=== PATIENT | female | born 1945 | race Asian ===

== ENCOUNTER 2017-05-06 10:55 | Outpatient (CLI) | payer MEDICARE, OTHER ==
--- NOTE | 2017-05-07 00:50 | XRAY Report ---
EXAM: LEFT SHOULDER RADIOGRAPHY EXAM DATE: 05/06/2017 11:16 AM. CLINICAL HISTORY: Left shoulder pain, rotator cuff. COMPARISON: None. TECHNIQUE: 3 views. FINDINGS: Bones: Normal. No fracture or bone lesion. Joints: The glenohumeral and acromioclavicular joints are normally aligned. Moderate acromioclavicula r degenerative changes. Mild glenohumeral degenerative changes. Soft tissues: Calcification in the region of the distal supraspinatus tendon. IMPRESSION: 1. Left shoulder calcific tendinitis. 2. Mild to moderate degenerative changes about the shoulder. [facility] Referring Provider Line: [phone] SITE ID: [id number]
== END 2017-05-06 10:56 | disposition home or self-care (01) ==
LOC: DI 10:55
PROVIDERS: ATTEND Internal Medicine
DX: M75.32 Calcific tendinitis of left shoulder (principal); M19.012 Primary osteoarthritis, left shoulder

== ENCOUNTER 2019-05-23 12:12 | Outpatient (CLI) | payer MEDICARE, OTHER ==
--- NOTE | 2019-05-23 16:26 | DEXA Report ---
Reason: OSTEOPENIA Procedure Date: 05/23/2019 Accession Number: [id number] / [id number] Procedure: DEX - Dexa Spine and/or Hip CPT Code: Final Report FULL RESULT: EXAM: Dexa Spine and/or Hip DATE: 05/23/2019 1:54 PM CLINICAL HISTORY: POST MENOPAUSAL. OSTEOPENIA TECHNIQUE: Dual energy x-ray absorptiometry (DXA) was performed on a [employer] System. Regions measured are the AP Spine, femoral neck, and if needed forearm. COMPARISON: None. In accordance with the International Society for Clinical Densitometry (ISCD) guidelines, data from previous exams may be reanalyzed using current recommendations and techniques. This is done to allow a more accurate basis for comparison with the current study. FINDINGS: The data for the lumbar spine is as follows: BMD (g/cm/cm) T-SCORE Z-SCORE REGION L1 1.017 -0.9 1.1 L2 1.045 -1.3 0.7 L3 1.041 -1.3 0.7 L4 1.057 -1.2 0.8 TOTAL 1.041 -1.2 0.9 NOTE: All evaluable vertebrae are used for classification The data for the hip is as follows: BMD (g/cm/cm) T-SCORE Z-SCORE REGION Neck 0.732 -2.2 -0.2 TOTAL 0.811 -1.6 0.2 NOTE: The femoral neck or total proximal femur, whichever is lowest, is used for classification. IMPRESSION: THE WHO CLASSIFICATION BASED ON THE INTERNATIONAL REFERENCE STANDARD IS OSTEOPENIA. THE FRACTURE RISK IS INCREASED. RECOMMENDATION: Patients with diagnosis of osteoporosis or osteopenia should have regular bone mineral density assessment. For those eligible for Medicare, routine testing is allowed once every 2 years. Testing frequency can be increased for patients who have rapidly progressing disease or for those who are receiving medical therapy to restore bone mass. COMMENT: World Health Organization (WHO) definitions for osteoporosis and osteopenia: NORMAL BMD: T-score at -1.0 or higher, fracture risk is low OSTEOPENIA BMD: T-score between -1.0 and -2.5, fracture risk is increased. OSTEOPOROSIS BMD: T-score at -2.5 or lower, fracture risk is high. National Osteoporosis Foundation recommends: 1. Obtain adequate dietary calcium (at least 1200 mg per day) and vitamin D (400-800 international units per day). 2. Participate, as appropriate, in regular weightbearing and muscle-strengthening exercise. 3. Avoid tobacco use and reduce alcohol and caffeine intake. 4. For more detailed information see the website at www.NOF.org.
== END 2019-05-23 12:13 | disposition home or self-care (01) ==
LOC: DI 12:12
PROVIDERS: ATTEND Internal Medicine
DX: M85.89 Other specified disorders of bone density and structure, multiple sites (principal); I77.810 Thoracic aortic ectasia; N95.8 Other specified menopausal and perimenopausal disorders
CPT/HCPCS: 77080; 93306

== ENCOUNTER 2020-05-26 10:45 | Outpatient (CLI) | payer MEDICARE, OTHER ==
--- NOTE | 2020-05-27 12:59 | Mammography Report ---
BILATERAL DIGITAL SCREENING MAMMOGRAM 3D/2D: 05/26/2020 CLINICAL: Routine screening. Comparison is made to exams dated: 04/24/2015 mammogram and 10/05/2011 mammogram - [facility]. There are scattered fibroglandular elements in both breasts. No significant masses, calcifications, or other findings are seen in either breast. There has been no significant interval change. IMPRESSION: NEGATIVE There is no mammographic evidence of malignancy. A 1 year screening mammogram is recommended. This exam was interpreted at Station ID: [id number]. NOTE: For mammograms, a report in lay terms will be sent to the patient. Approximately 15% of breast malignancies will not be visualized mammographically. In the management of a palpable breast mass, a negative mammogram must not discourage biopsy of a clinically suspicious lesion. Electronically Signed By: Cipriano Serrano M.D. ar/penrad:05/26/2020 12:17:17 ACR BI-RADS Category 1: Negative 3341F PARENCHYMAL PATTERN: (A) - The breast(s) demonstrate(s) scattered fibroglandular densities. BI-RADS CATEGORY: (1) - 1 RECOMMENDATION: (ANNUAL) - Recommend routine annual screening mammography. [id number] 1 year screening LATERALITY: (B)
== END 2020-05-26 10:46 | disposition home or self-care (01) ==
LOC: DI.N 10:45
DX: Z12.31 Encounter for screening mammogram for malignant neoplasm of breast (principal)
CPT/HCPCS: 77067

== ENCOUNTER 2022-09-19 11:56 | Outpatient (CLI) | payer MEDICARE, OTHER ==
[2022-09-19 12:53] LABS: CREATININE 0.9 mg/dL (0.4-1.0)
[2022-09-19] MEDS ORDERED: iohexoL-300 100 ML VIAL ONE (13:04)
--- NOTE | 2022-09-19 14:52 | CT Report ---
PROCEDURE: ANGIO CHEST W/WO INDICATIONS: THORACIC AORTIC ANEURYSM CONTRAST: 80ml Omnipaque 300 TECHNIQUE: After the administration of intravenous contrast, 2 mm axial images were acquired from the pulmonary apices to the posterior costophrenic angles during the arterial phase. In addition, 1 mm lung kernel and 5 mm soft tissue kernel reconstructions were performed. 3-dimensional coronal oblique maximum int ensity projection (MIP) reformats, 8 mm axial MIP, and 5 mm coronal and sagittal MPR reformats were t hen performed through the thorax. For radiation dose reduction, the following was used: automated exp osure control, adjustment of mA and/or kV according to patient size. COMPARISON: None. FINDINGS: Image quality: Excellent. Large vessels: No filling defects within the opacified pulmonary arteries, accounting for motion and contrast timing. No evidence of acute aortic syndrome or aortic aneurysm. The ascending thoracic aort a measures 3.9 cm in oblique axial diameter. Scattered atheromatous calcifications are present at the thoracic aortic arch. There is mild tortuosity of the descending thoracic aorta. No aneurysmal dilat ation. No intramural hematoma. Lungs and pleura: No consolidation. No pleural effusions. No pneumothorax. No suspicious pulmonary n odules which require follow up. Mediastinum: Heart size is normal. No pericardial effusions. No mediastinal adenopathy by size criter ia. Chest wall and lower neck: Thyroid is unremarkable. No axillary or supraclavicular adenopathy by size . Bones: No aggressive osseous abnormality. Upper Abdomen: Unremarkable. IMPRESSION: 1. No thoracic aortic aneurysm. 2. No acute pulmonary findings or suspicious pulmonary nodules. Reviewed by: Gill Kim MD on 09/19/2022 2:50 PM PDT Approved by: Gill Kim MD on 09/19/2022 2:50 PM PDT Station ID: [id number]
[2022-09-19] MEDS ORDERED: iohexoL-300 100 ML VIAL IVP ONE (15:55)
== END 2022-09-19 11:57 | disposition home or self-care (01) ==
LOC: DI 11:56
PROVIDERS: ATTEND Physician Assistant
DX: I71.20 Thoracic aortic aneurysm, without rupture, unspecified (principal)
CPT/HCPCS: 36415; 71275; 82565; Q9967